=== PATIENT | male | born 1955 | race Caucasian/White ===

== ENCOUNTER → 2021-01-18 | Outpatient (CLI) | payer BC, MEDICARE | LOC: RAD 11:26 | DX: R06.02 Shortness of breath (principal) | CPT/HCPCS: 71046; 93005 ==

== ENCOUNTER → 2021-05-06 | Outpatient (CLI) | payer OTHER | LOC: ECHO 02-26 09:00 → NM 02-26 09:00 → ECHO 03-29 10:00 | DX: R06.00 Dyspnea, unspecified (principal) | CPT/HCPCS: ECHO; 93306 ==